=== PATIENT | female | born 2000 | race Caucasian/White ===

== ENCOUNTER 2022-07-18 12:33 | Emergency (ER) | payer OTHER, SELFPAY ==
--- NOTE | ~2022-07-18 | CT_ITS ---
EXAMINATION: CT abdomen pelvis w con DATE: 07/18/2022 15:44 INDICATION: Right lower quadrant abdominal pain TECHNIQUE: Computed tomography (CT) of the abdomen and pelvis was performed with 100 mL Omnipaque-350 intravenous contrast. Automated exposure control and iterative reconstruction technique were employe d. The dose-length product was 245.76 mGy-cm. COMPARISON: None FINDINGS: Bases are clear. Visualized inferior heart is normal. No pericardial or pleural effusion. Liver, gall bladder, spleen, pancreas, bilateral adrenal glands and kidneys are normal. Bowels including the appe ndix are normal. 2 mm calcification along the posterior wall of the bladder near the expected locatio n of the right ureterovesicular junction. There is however no evident associated right hydroureterone phrosis. Uterus and bilateral adnexa are unremarkable. No free intraperitoneal gas or fluid. No patho logically enlarged abdominal or pelvic lymphadenopathy. Bones are unremarkable. IMPRESSION: 1. 2 mm calcification in the expected region of the right ureterovesicular junction suspicious for no nobstructing renal stone. No hydroureteronephrosis but would correlate with urinalysis. 2. No other acute intra-abdominal/pelvic process with normal appendix. Reviewed, dictated and finalized at location A. [facility] [employer] IMPRESSION: 1. 2 mm calcification in the expected region of the right ureterovesicular junc tion suspicious for nonobstructing renal stone. No hydroureteronephrosis but wo uld correlate with urinalysis. 2. No other acute intra-abdominal/pelvic process with normal appendix.
[2022-07-18 12:42] VITALS: BP 112/59; PULSE 56; RESP 16; TEMP 36.6; O2SAT 99
[2022-07-18 12:55] LABS: Basophils Percent Auto 0.2 % (0.2-1.2); Eosinophils Percent Auto 0.1 % (0-4.4); Hematocrit 37.7 % (37.0-47.0); Hemoglobin 12.7 g/dL (12.0-15.0); Immature Granulocyte Absolute 0.09 K/mm3 (0.00-0.031); Immature Granulocyte Percent A 0.6 % (0-0.5); Lymphocytes Absolute Auto 1.76 K/mm3 (0.9-3.2); Lymphocytes Percent Auto 10.9 % (18.3-44.2); Mean Corpuscular HGB Conc 33.7 g/dl (32-36); Mean Corpuscular Hemoglobin 29.7 pg (26-34); Mean Corpuscular Volume 88.3 fl (80-100); Mean Platelet Volume 10.1 fl (7.4-10.4); Monocytes Absolute Auto 0.6 K/mm3 (0.1-0.6); Monocytes Percent Auto 3.4 % (2.6-8.5); Neutrophils Absolute Auto 13.6 K/mm3 (1.3-6.7); Neutrophils Percent Auto 84.8 % (45.5-73.1); Platelet Count Result 260 k/mm3 (150-375); Red Blood Count 4.27 M/mm3 (4.2-5.4); Red Cell Distribution Width 13.2 % (11.5-14.5); White Blood Count 16.1 K/mm3 (4.5-10.0)
[2022-07-18 13:08] LABS: Alanine Aminotransferase 23 U/L (6-35); Albumin Level 4.4 g/dL (3.5-5.1); Alkaline Phosphatase 53 U/L (38-126); Anion Gap 8 mmol/L (8-16); Aspartate Amino Transferase 24 U/L (14-36); Bilirubin,Total 0.6 mg/dL (0.2-1.3); Blood Urea Nitrogen 17 mg/dL (7-17); Calcium 8.9 mg/dL (8.4-10.2); Carbon Dioxide 23 mmol/L (22-30); Chloride 104 mmol/L (98-107); Estimated CRCL calculation 73 ml/min; Estimated Glomerular Filt Rate > 60; Glucose 123 mg/dL (65-110); Lipase 83 U/L (23-300); Potassium 3.9 mmol/L (3.4-5.0); Sodium 135 mmol/L (137-145)
[2022-07-18 14:00] LABS: Mucus Urine Heavy /lpf; RBC Urine >75 /hpf (0-2); Squamous Epithelial Cell Urine Many /hpf (Few)
[2022-07-18 14:02] LABS: Add Urine Microscopic? YES; Appearance Urine Slightly Cloudy (Clear); Color Urine Orange (Yellow)
--- NOTE | 2022-07-18 16:18 | ED.ABDPAIN ---
HPI - Abdominal Pain General Chief Complaint: Abdominal Pain Stated Complaint: abd pain Time Seen by Provider: 07/18/22 13:33 History of Present Illness HPI narrative: Patient is a 22-year-old female who presents to the ER with abdominal pain. Sudden onset right-sided. Started in the back of her down to right groin. Has waves of pain with nausea and vomiting. Pain will last 45 minutes at a time and then go away. She is also had multiple episodes of diarrhea. No fevers or chills or sweats. She had some urinary frequency but no dysuria. She took Azo without improvement. No history of kidney stones. No known sick contacts with GI illness. Related Data Allergies Allergy/AdvReac Type Severity Reaction Status Date / Time No Known Allergies Allergy Mild Verified 11/05/10 20:25 Review of Systems Review of Systems: All systems reviewed & are unremarkable except as noted in HPI and below Constitutional: Constitutional: Denies chills, Denies fatigue and Denies fever(s) Cardiovascular: Cardiovascular: Denies chest pain, Denies rapid heart rate and Denies radiating jaw, neck or arm pain Respiratory: Respiratory: Denies cough and Denies dyspnea Gastrointestinal: Gastrointestinal: Reports abdominal pain, Reports diarrhea, Reports nausea and Reports vomiting Genitourinary: Genitourinary: Denies hematuria, Reports nocturia, Denies dysuria and Reports flank pain PMFSH Past Medical History Medical History (Updated 07/18/22 @ 16:22 by Coleman Valadez MD) Healthy female adult Surgical History Surgical History (Updated 07/18/22 @ 16:20 by Coleman Valadez MD) No history of previous surgery Social History Social History (Updated 07/18/22 @ 16:20 by Coleman Valadez MD) Smoking status: Never smoker Exam Narrative: GENERAL: Well-appearing, well-nourished, and in no acute distress. HEAD: Normocephalic, atraumatic. CHEST: Clear to auscultation. No respiratory distress. HEART: Regular rate and rhythm. Normal peripheral pulses. ABDOMEN: Soft, nontender, nondistended. No CVA tenderness. EXTREMITIES: Normal range of motion. No edema. SKIN: Warm, dry, no rash. NEURO: Alert and oriented x3. PSYCH: Normal mood and affect. Course Course Emergency Course: Patient resting comfortably. Informed of results. Discussed that she should expect passage of kidney stone soon. We will give her supportive care medications for home. Leukocytosis elevated as a result of her diarrhea/vomiting. No evidence of infection to urine. Discoloration due to Azo. Vital Signs Vital signs: Vital Signs Temperature 97.9 F 07/18/22 12:42 Pulse Rate 56 L 07/18/22 12:42 Respiratory Rate 16 07/18/22 12:42 Blood Pressure 112/59 L 07/18/22 12:42 Pulse Oximetry 99 07/18/22 12:42 Oxygen Delivery Room Air 07/18/22 12:42 Temperature 97.9 F 07/18/22 12:42 Pulse Rate 56 L 07/18/22 12:42 Respiratory Rate 16 07/18/22 12:42 Blood Pressure 112/59 L 07/18/22 12:42 Pulse Oximetry 99 07/18/22 12:42 Oxygen Delivery Room Air 07/18/22 12:42 MDM - Abdominal Pain Lab Data 07/18/22 12:49 07/18/22 12:49 Labs: Lab Results 07/18/22 07/18/22 07/18/22 Range/Units 12:49 12:49 13:46 WBC 16.1 H (4.5-10.0) K/mm3 RBC 4.27 (4.2-5.4) M/mm3 Hgb 12.7 (12.0-15.0) g/dL Hct 37.7 (37.0-47.0) % MCV 88.3 (80-100) fl MCH 29.7 (26-34) pg MCHC 33.7 (32-36) g/dl RDW 13.2 (11.5-14.5) % Plt Count 260 (150-375) k/mm3 MPV 10.1 (7.4-10.4) fl Immature Gran % (Auto) 0.6 H (0-0.5) % Neut % (Auto) 84.8 H (45.5-73.1) % Lymph % (Auto) 10.9 L (18.3-44.2) % [place] % (Auto) 3.4 (2.6-8.5) % Eos % (Auto) 0.1 (0-4.4) % Baso % (Auto) 0.2 (0.2-1.2) % Lymph # (Auto) 1.76 (0.9-3.2) K/mm3 [place] # (Auto) 0.6 (0.1-0.6) K/mm3 Eos # (Auto) 0.0 (0-0.3) K/mm3 Baso # (Auto) 0.0 (0.0-0.1) K/mm3 Abs Immat Gran (auto) 0.09 H (
== END 2022-07-18 16:45 | disposition home or self-care (01) ==
PROVIDERS: Emergency Provider Emergency Medicine; PCP Pediatrics
DX: N20.1 Calculus of ureter (principal)
CPT/HCPCS: 36415; 74177; 80053; 81001; 81025; 83690; 85025; 99284; Q9967